=== PATIENT | female | born 1940 | race Caucasian/White ===

== ENCOUNTER 2016-10-30 10:51 | Outpatient (RCR) | payer MEDICARE, OTHER ==
--- NOTE | 2016-11-06 10:50 | PT/OT/ST INITIAL EVALUATION ---
Department of Health and Human Services Form Approved Health Care Financing Administration OMB No. [id number] PLAN OF CARE/ASSESSMENT FOR OUTPATIENT REHABILITATION (Complete for Initial Claims Only) 1. PATIENT'S NAME Heydi Sandy 2. ACC # [id number] 3. [facility] [id number] 4. PROVIDER NO. [id number] 5. TYPE: PT 6. PRIOR HOSPITALIZATION None 7. PRIMARY DX I89.0 lymphedema 8. TREATMENT DX I89.0 lymphedema 9. ONSET DATE June 2014 10. REFERRAL DATE 10/24/2016 11. SOC. DATE 10/30/2016 12. TIME OF EVAL 10:[address] Syed Anne 13. CHARGES/UNITS NA 14. G CODES [id number]. U8090-KG. [id number]. LEFS 15. PRIOR LEVEL OF FUNCTION; PERTINENT HISTORY (Prior therapy results, reason for referral.) S: Prior to intervention, the patient did agree to today's physical therapy evaluation and treatment, evaluation only on this date at this facility, for ordering of custom compression garments to manage lymphedema. Reason for referral: This 76-year-old female is referred to physical therapy for evaluation and treatment of right lower extremity lymphedema. She is being treated with complex decongestive therapy and manual lymphatic drainage at another facility and is referred to [facility] for a one time visit for ordering of custom compression garments. This patient reports that she has had trouble with lymphedema in her right leg ever since having her right knee replaced about 2-1/2 years ago, June 2014. She relates the onset of lymphedema to the use of an Aquacel dressing after her knee surgery, which she did not have on her left lower extremity. Her edema impairs her ability to walk and transfer, due to the weight of the right lower extremity. She denies pain, but states her right lower extremity swells during the day, decreases it when she elevates it at night. She reports several episodes of cellulitis with need for antibiotics due to the edema in her right lower extremity. Skilled lymphedema physical therapy treatment has been ongoing since 10/07/2016. Therapy is necessary for lymphedema management. Without therapy, the patient is at risk for further debility and skin breakdown due to recurrent cellulitis, increased risk of falls due to the weight and instability of her right lower extremity. Therapy History: As noted, the patient is receiving ongoing physical therapy for this lymphedema at [facility] in [place], [place]. One time evaluation and treatment at [facility] for ordering of garments. Prior level of function: The patient is modified independent in ambulation with a front-wheeled walker. She uses a single-point cane and a quad cane in her home, but uses the front-wheeled walker when outside of the house. She is independent for all cooking, cleaning, and self-care activities. The patient has two steps with a railing from the porch into the house and steps into her basement with a railing. Because of the lymphedema in her right lower extremity, she has had increased difficulty lifting her right leg in and out of her car. She recently completed a course of antibiotics for cellulitis. She wears an off the shelf compression stocking on her left lower extremity daily. Until seeking physical therapy, she had worn the same on her right lower extremity, but it was not managing her edema. In the course of treatment, her right lower extremity edema has significantly decreased, to the point where it is essentially symmetric to her left; therefore, it is appropriate to order custom compression garments at this time. Precautions: The patient demonstrates a fall risk due to gait instability. Past medical history: The patient has had bilateral total knee arthroplasty surgeries; the most recent was the right TKA in June 2014. She has a history of osteoarthritis, hypertension, and hypothyroidism. The patient denies any falls in the last years. Personal health rating: Good. Current medications: the patient takes an antihypertensive medication, which may contribute to orthostatic hypotension. She takes a diuretic, which increases her risk for weakness and dizziness. She takes an anti-steroidal antiinflammatory medication, which should not impact physical therapy. Patient's Goal: The patient's stated goal for this visit is to order a custom compression garment for her right lower extremity for her penitentiary use. 16. INITIAL ASSESSMENT/SAFETY PRECAUTIONS/MEDICAL COMPLICATIONS (Level of function at start of care. Be specific, use objective measures, list problems.) O: APPEARANCE AND OBSERVATION: The patient presents to physical therapy with her . She ambulates with a front-wheeled walker with a moderate Trendelenburg gait, compensatory lateral lean, poor foot clearance bilaterally, short strides. On this date, she has accomplished modified independent transfers and bed mobility. The patient was measured on this date with lower extremity girth measures, per ordering sheet. As noted above, the right lower extremity circumferential girth has stabilized with the previous treatment. There is no longer pitting edema in the right lower extremity, where previously she had 2+ to 3+ pitting edema in the pretibial area and the dorsum of the foot. STRENGTH: Manual muscle test -Hip flexion right 3+/5, left 3+/5. Hip extension right 3-/5, left 3/5. Hip abduction right 3-/5, left 3/5. Hip adduction right 3+/5, left 3+/5. Knee extension right 4/5, left 4/5. Knee flexion right 3+/5, left 3+/5. Ankle dorsiflexion right 4/5, left 4/5. 17. INITIAL POC: (Specify procedures, modalities, short and penitentiary goals) A: This patient is appropriate for a single visit to physical therapy, evaluation and treatment on this date, to order custom compression garment. PROGNOSIS: The patient has need for a custom compression garment to manage her chronic lymphedema. She is a good candidate for this intervention. FUNCTIONAL LIMITATION CODES: Evaluation only, therefore, initial status, goal status, and current status are all the same. [id number]. [id number]. [id number]. This functional limitation is based on current patient presentation, physical therapist professional judgment of stabilizing lymphedema. Her chronic edema does continue to interfere with walking and functional activities in her home and community. Lower Extremity Functional Scale: 44/64, indicating 69% function with the right lower extremity. Note that the running and jumping items were omitted from the Lower Extremity Functional Scale as this is not the patient's prior level of function, or her goal. INFORMED CONSENT: The physical therapy diagnosis, prognosis, treatment plan of single visit this date was discussed with the patient on this date. She agrees to today's established physical therapy evaluation and intervention. GOALS: In one visit, the patient to be measured for ordering custom compression garment, thigh-high stocking, to manage chronic lymphedema in the right lower extremity. Goal met on this date, 10/30/2016. P: Evaluation only for physical therapy at this facility for measuring for custom compression garment, manual therapy for complex decongestive therapy and manual lymphatic drainage. Therapeutic exercise to manage lymphedema and compression bandaging for maintaining edema decrease until custom garments arrive. Thank you for the referral of this patient. 18. FREQUENCY Evaluation only this date. Goal met this date. 19. OUTCOME MEASURE: Lower Extremity Functional Scale (LEFS) 44/64 = 69% function. 20. FUNCTIONAL LEVEL (End of claim period) 21. PHYSICIAN SIGNATURE ? ON FILE OR ENTER HERE: 22. DATE: I certify the need for these services furnished under this plan of care and if for partial hospitalization. 23. CERTIFICATION FROM THROUGH FORM [id number]
== END 2016-11-18 10:22 | disposition home or self-care (01) ==
LOC: PT 10:51
DX: I89.0 Lymphedema, not elsewhere classified (principal)
CPT/HCPCS: 97110; 97140; 97162; G8978; G8979; G8980